=== PATIENT | male | born 1940 | race Caucasian/White ===

== ENCOUNTER 2017-10-23 11:08 | Inpatient (IN) | payer MEDICARE ==
[2017-10-23 11:41] LABS: #Basophils 0.1 thou/uL (0.0-0.2); #Eosinphils 0.2 thou/uL (0.0-0.7); #Lymphocytes 2.7 thou/uL (1.20-3.40); #Monocytes 0.7 thou/uL (0.11-0.59); #Neutrophils 3.9 thou/uL (1.40-6.50); %Basophils 1.1 % (0.0-1.0); %Eosinophils 2.3 % (0.0-10.0); %Lymphocytes 35.6 % (21.0-51.0); %Monocytes 8.9 % (0.0-10.0); %Neutrophils 52.1 % (42.0-75.0); Hemoglobin 15.5 g/dL (14.0-18.0); Mean Corpuscular HGB CONC 33.5 g/dL (32.0-36.0); Mean Corpuscular Hemoglobin 31.7 pg (27.0-31.0); Mean Corpuscular Volume 94.4 fl (80.0-94.0); Mean Platelet Volume 8.1 fL (7.4-10.4); Platelet Count 216 thou/uL (130-400); RBC Distribution Width 12.6 % (11.5-14.5); Red Blood Cell (RBC) Count 4.89 mill/uL (4.70-6.10); White Blood Cell (WBC) Count 7.5 thou/uL (4.8-10.8)
[2017-10-23 12:07] LABS: ALT (SGPT) 13 U/L (8-55); AST (SGOT) 16 U/L (5-34); Albumin 4.3 g/dL (3.4-4.8); Alkaline Phosphatase 103 U/L (40-150); Anion Gap 13 mmol/L (10-20); BUN (Urea Nitrogen) 12 mg/dL (8.4-25.7); Bilirubin, Total 0.5 mg/dL (0.2-1.2); CK (CPK) 120 U/L (30-200); Calc. Creatinine Clearance 0 mL/min (70-130); Carbon Dioxide 26 mmol/L (23-31); Chloride 103 mmol/L (98-107); Estimated GFR-MDRD 82; Globulin 3.8 g/dL (2.4-3.5); Glucose 102 mg/dL (83-110); Protein, Total 8.1 g/dL (5.8-8.1); Sodium 138 mmol/L (136-145)
[2017-10-23 12:11] LABS: CKMB 2.2 ng/mL (0-6.6); Troponin I Less than 0.010 ng/mL (< 0.028)
[2017-10-23] MEDS ORDERED: hydrALAZINE 20 MG/ML VIAL ONE (12:24)
--- NOTE | 2017-10-23 12:25 | CT ---
CT HEAD NONCONTRAST: HISTORY: Altered mental status. Facial numbness. FINDINGS: No comparison. There is no evidence of acute intracranial hemorrhage or infarct. The ventricles bessy ear normal in size, shape, and position. There is no mass effect or shift of midline structures. Vi sualized paranasal sinuses remain well aerated. IMPRESSION: No acute intracranial abnormalities are demonstrated on noncontrast CT head. POS: [facility]
--- NOTE | 2017-10-23 12:33 | RAD ---
SINGLE VIEW OF THE CHEST: COMPARISON: None. HISTORY: Altered mental status with mini stroke. Numbness in the face. FINDINGS: Single view of the chest shows a normal sized cardiomediastinal silhouette. There is no evidence of c onsolidation, mass, or pleural effusion. The bones are unremarkable. IMPRESSION: No evidence of acute cardiopulmonary disease. POS: [facility]
[2017-10-23] MEDS ORDERED: Mag-Al 1200 mg/1200 mg/30 ML UDCUP ONE (13:39)
[2017-10-23] MEDS ORDERED: Lidocaine Viscous Sol 2% 15 ml UD Cup ONE (13:39)
[2017-10-23] MEDS ORDERED: Acetaminophen 325 MG TAB PO PRN (14:47)
[2017-10-23] MEDS ORDERED: Ondansetron ODT 4 MG TAB SL PRN (14:47)
[2017-10-23] MEDS ORDERED: Ondansetron HCl/PF 4 MG/2 ML Vial IVP PRN (14:47)
[2017-10-23] MEDS ORDERED: Lorazepam 1 MG TAB PO PRN (16:29)
[2017-10-23] MEDS ORDERED: Lorazepam 2 MG/ML VIAL SLOW IVP PRN (16:30)
[2017-10-23 16:40] VITALS: BMI 31.5
--- NOTE | 2017-10-23 17:29 | HP ---
PRIMARY CARE PHYSICIAN: None. CHIEF COMPLAINT: Possible transient ischemic attack. HISTORY OF PRESENT ILLNESS: The patient is a very pleasant 77-year-old male with past medical histor y of colon cancer, status post resection and chemotherapy about 10 years ago who presented to the ER with complaints of right-sided facial tingling and right upper and lower extremity tingling and numbn ess. The patient stated that this happened to him yesterday evening and started having right facial numbness and tingling, also right upper and lower extremity numbness and tingling, which was pretty i ntense. However, the patient did not do anything about it and just his symptoms resided. However, uriel yates woke up this morning and started having the similar symptoms, which made him come into the ER. The patient states that he has never had this happen to him in the past. The patient states he is prett y healthy and does not follow up with a lot of doctors. The patient denies any nausea, vomiting, alexx st discomfort, headaches, fevers or chills. The patient currently is asymptomatic. The patient did say that he did take aspirin this morning; however, normally he does not take aspirin. PAST MEDICAL HISTORY: 1. Colon cancer, status post resection about 10 years ago with chemotherapy. 2. Questionable hypertension; however, the patient stated that he lost weight and he was taken off o f the blood pressure medication. PAST SURGICAL HISTORY: Colon resection. ALLERGIES: The patient has no known drug allergies. MEDICATIONS: The patient does not take any medications at home. SOCIAL HISTORY: The patient was a very heavy smoker, 2-3 packs a day for about 20 years, quit a long time ago. Also, he is a very heavy drinker, 6-13 beers a day. Denies any withdrawal symptoms. FAMILY HISTORY: The patient denies any significant family history of heart disease. REVIEW OF SYSTEMS: A 10-point review of systems was negative except for the ones mentioned in the HP I. PHYSICAL EXAMINATION. VITAL SIGNS: Blood pressure 178/76, pulse 86, respirations 20 and temperature is 98.5. GENERAL: The patient is awake, alert and oriented x3, does not appear in any distress. HEENT: Normocephalic and atraumatic. NECK: No lymphadenopathy noted. CARDIOVASCULAR: S1 and S2 present. No murmurs, rubs or gallops. LUNGS: Clear to auscultation. No rhonchi or wheezes noted. ABDOMEN: Soft and nontender. Bowel sounds are present x2. NEUROLOGIC: Cranial nerves II-XI are intact. The patient has 5/5 upper extremity and lower extremit y strength. No weakness noted. Sensation intact in the bilateral upper and lower extremities. Cere bellum; [id number]-to-nzzy and [id number]-td-[id number] intact. LABORATORY DATA: WBCs of 7.5, hemoglobin of 15.5 and hematocrit of 46.1. Sodium of 138, potassium o f 4.0, chloride of 103 and creatinine of 0.9. LFTs were normal. Troponin was negative. Chest x-ray did not show any acute process. CT of the brain was negative for acute bleed. ASSESSMENT AND PLAN: The patient is a very pleasant 77-year-old male who initially presented to the hospital with right-sided weakness. 1. Right-sided weakness, most likely a transient ischemic attack; however, now has resolved. We mahsa l start patient on 325 mg of aspirin. We will start patient on a statin. We will check a hemoglobin A1c and lipid panel, MRI of the brain, carotid Dopplers and echocardiogram. We will continue to mon itor the patient on telemetry. Neurology consulted. 2. Hypertension. We will start the patient on high blood pressure medication. We will put patient on a low salt diet. 3. Deep venous thrombosis prophylaxis. We will put patient on Lovenox.
[2017-10-23] MEDS ORDERED: Lisinopril 20 MG TAB PO SCH (17:30)
--- NOTE | 2017-10-23 20:54 | CON ---
DATE OF CONSULTATION: 10/23/2017 CHIEF COMPLAINT: Numbness in the right side of the face. HISTORY OF PRESENT ILLNESS: Patient is a 77-year-old man, who reports he has been in his usual state of health. He is pretty active. He has not been to the doctors in while and he was told if he redu susi his body weight, the doctor might consider stopping his blood pressure medications, but he has st opped his blood pressure medication recently by himself and he also had loose tooth yesterday, which he pulled out by himself and reports there was a little bit of an abscess there and a swelling. He i s not sure what caused it, but he developed numbness of the right side of the face along with right u pper and arm tingling and numbness, which lasted about 8-10 minutes, top 15 minutes yesterday, but to day he reports he has had recurrence of the same symptoms and woke up with it and he decided somethin g is wrong and came to the ER. No history of any weakness was reported. He does not have any swallo wing problems, speech problems, or double vision. 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 PREVIOUS MEDICAL HISTORY: 1. Colon cancer and status post resection 10 years ago with chemotherapy. 2. Hypertension and he recently stopped his own medications. PAST SURGICAL HISTORY: Colon resection. ALLERGIES: No drug allergies. MEDICATIONS: None at home. FAMILY HISTORY: Positive for stroke in his mother and is also history of heart attack in his sibling s, one brother at 46 years of age from heart disease. SOCIAL HISTORY: Patient used to smoke heavily until about age 41, and then he stopped and he drinks daily and drinks up to 12-13 beers a day, starts in the evening at 5:00 p.m. and ends at 9:00 p.m. H e does not eat much in the evenings. He does not have any drug use. 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 REVIEW OF SYSTEMS: Pulmonary: Normal. Cardiac: Normal. Negative for any chest pain. Dermatologi c: Normal. General: Positive for hypertension. Neurologic: Positive for numbness and tingling in the right face, arm, and leg distribution. Endocrine: Normal. LABORATORY RESULTS: White count 7.5, hemoglobin 15.5, hematocrit 46.1, platelets 216. Chemistry: S odium 138, potassium 4.0, chloride 103, carbon dioxide 26, BUN 12, creatinine 0.9, and blood glucose 102, globulin 3.8, albumin 4.3, and liver functions within normal limits with normal alkaline phospha tase levels at 103. His CT scan of the head did not show any acute intracranial abnormalities. PHYSICAL EXAMINATION: VITAL SIGNS: Blood pressure 178/76, temperature 98.5, pulse 86, respiratory rate 20, O2 sats 96. GENERAL APPEARANCE: Well-built, well-nourished gentleman, who is comfortably lying in bed. CARDIOVASCULAR: S1, S2 heard. No murmurs. Carotids are clear. ABDOMEN: Soft, nontender, no organomegaly found. CHEST: Clear vesicular breathing. NEUROLOGICAL: High intellectual functions are normal with normal orientation to time, place, and per son appropriate conversation. Cranial nerves II through XII. Normal pupillary size 2 mm bilaterally and reactive to light. Normal extraocular movements. Normal sensation of face bilaterally. No fac ial asymmetry noted. Hearing normal bilaterally. Normal elevation of palate. Tongue midline, no at rophy noted. Motor exam: Bulk normal, tone normal, strength 5/5 throughout in upper and lower extre mities in iliopsoas, hamstrings, quadriceps, ankle dorsiflexion, plantar flexion, deltoid, biceps, tr iceps, wrist extension/flexion, finger extension and flexion bilaterally. Deep tendon reflexes 2+ bi laterally with brachioradialis and triceps, and knee jerks and ankle jerks bilaterally. Sensory exam ination: Normal to touch, pinprick, proprioception, vibration, and temperature bilaterally. Cerebel lar: Normal [id number]-ut-frfg and wxzd-oy-[id number]. IMPRESSION: Patient is a 77-year-old man with history of colon cancer about 10 years ago and at this time, and he has not been under regular medical care over the past few years by choice. He reports he has been having problems with numbness of the face, arm, and leg and on the right side, which last ed about 8-15 minutes yesterday and he woke up again with numbness in the right side this morning, wh ich alerted him and he came to the ER and he had recurrence of the same symptoms on and off through t he day-to-day. No weakness was described. No visual symptoms. There is a positive family history o f stroke in his mother, coronary artery disease with an SC in his brother, who at age 46. Patient himself has been given antihypertensives and because his doctor told him he would take him off of it if he lost weight. Patient worked and lost 40 pounds and decided to take himself off of hi s antihypertensives. Yesterday, the only other incident is that he had a loose tooth and he pulled it out himself and he felt there was some swelling in the gum area. His clinical examination current ly is normal. Clinical history and diagnosis is most consistent with transient ischemic attack, like ly cause his hypertension. RECOMMENDATIONS: 1. Please start patient on aspirin 81 mg once daily. 2. Monitor for any significant changes in his neurological status. 3. Please include TSH, B12, folate, echocardiogram and lipid profile in his stroke workup. 4. Please obtain MRI of the brain. 5. I will ask one of my Neurology colleagues to follow this patient tomorrow after the MRI has been completed.
[2017-10-23] MEDS: Atorvastatin Calcium 10 MG TAB PO SCH (22:18)
--- NOTE | 2017-10-23 23:10 | ULT ---
CAROTID ULTRASOUND WITH DREW SCALE AND DOPPLER DUPLEX COLOR FLOW IMAGING SPECTRAL ANALYSIS PERFORMED: CLINICAL INDICATION: Stroke. FINDINGS: There is moderate scattered atherosclerotic calcification of the carotid arteries. PEAK SYSTOLIC VELOCITY (CM/S): Right CCA 73 Left CCA 108 Right ICA 90 Left ICA 183 There is antegrade flow within the visualized bilateral vertebral arteries. IMPRESSION: 1. No hemodynamically significant stenosis of the right internal carotid artery. 2. Moderate (50-69%) stenosis of the left internal carotid artery. POS: [facility]
[2017-10-24 05:18] LABS: Hemoglobin A1c 4.8 % (4.0-6.0)
[2017-10-24 05:36] LABS: Cardiac Risk 3.8 (Less than 4.5)
[2017-10-24] MEDS ORDERED: Aspirin 81 mg Enteric Coated Tablet PO SCH (09:00)
[2017-10-24] MEDS: Enoxaparin Sodium 30 MG/0.3 ML SYRINGE SC SCH (09:09)
[2017-10-24] MEDS: Lisinopril 20 MG TAB PO SCH (09:10)
--- NOTE | 2017-10-24 10:29 | MRI ---
MRI BRAIN NONCONTRAST: DATE: 10/24/17. HISTORY: A 77-year-old male with acute stroke. Altered mental status and facial numbness (hypesthesia). COMPARISON: No prior brain MRIs. FINDINGS: There are 2 tiny foci of restricted diffusion, associated with minimally increased T2 signal intensit y, in the left thalamus, each measuring approximately 0.4 x 0.2 cm, consistent with acute or subacute tiny lacunar infarctions. There are mild to moderate chronic ischemic white matter changes in the navas radiata and centrum se miovale. Ventricles are normal in size and configuration. No recent or remote intraaxial hemorrhage , mass effect, midline shift, or extraaxial fluid collection. IMPRESSION: Two tiny acute or subacute lacunar infarctions in the left thalamus (thalamoperforator branch territo ry of left posterior cerebral artery). JN R POS: OFF
[2017-10-24] MEDS ORDERED: Acetaminophen 325 MG TAB PO PRN (17:44)
--- NOTE | 2017-10-24 18:10 | PDOC.PN ---
- Subjective Encounter Start Date: 10/24/17 Encounter Start Time: 13:00 Subjective: pt up in bed keeps having tingling to his right side of the face x2 - Objective Vital Signs & Weight: Vital Signs (12 hours) Temp Pulse Resp BP Pulse Ox 10/24/17 16:00 98.3 F 70 16 147/66 H 95 Result Diagrams: 10/23/17 11:35 10/23/17 11:35 Phys Exam - Physical Examination HEENT: PERRLA Neck: no nodes, no JVD Respiratory: no wheezing, no rales Cardiovascular: RRR, no significant murmur Gastrointestinal: soft, non-tender Musculoskeletal: no edema, pulses present Neurological: non-focal, normal sensation Lymphatic: no nodes Psychiatric: normal affect Dx/Plan (1) Lacunar infarct, acute Code(s): I63.9 - CEREBRAL INFARCTION, UNSPECIFIED Status: Acute Plan: pt is on statin and asa (2) Hypertension Code(s): I10 - ESSENTIAL (PRIMARY) HYPERTENSION Status: Acute Plan: stable will continue bp meds for now - Plan * .
[2017-10-24] MEDS: Atorvastatin Calcium 10 MG TAB PO SCH (21:30)
[2017-10-25] MEDS: Lisinopril 20 MG TAB PO SCH (08:48)
[2017-10-25] MEDS: Enoxaparin Sodium 30 MG/0.3 ML SYRINGE SC SCH (08:48)
[2017-10-25] MEDS ORDERED: Aspirin 325 mg Enteric Coated Tablet PO SCH (09:00)
--- NOTE | 2017-10-25 09:49 | CT ---
CT ANGIOGRAM OF THE NECK WITH CONTRAST: Date: 10-25-17 History: 77-year-old male with left internal carotid artery stenosis and stroke. Technique: IV injection of Isovue. Arterial bolus chasing technique scan performed from aortopulmonic window to skull base. Coronal and sagittal 3D MIP reconstructions. FINDINGS: Brachiocephalic: Calcified plaque at its origin from aortic arch. No high grade stenosis. Right subclavian: Calcified plaque at its origin from the brachiocephalic, but no high grade stenosis . Left subclavian: Calcified plaque at its origin from the aortic arch. No high grade stenosis. Right common carotid artery: No high grade stenosis. Left common carotid: Calcified plaque at its origin causing moderate stenosis. No high grade stenosis in the rest of the left common carotid. Right internal carotid: Heavily calcified plaque at the carotid bulb makes it difficult to evaluate t he degree of stenosis. Estimated maximum degree of stenosis is approximately 30% in the proximal SAM . No stenosis in the rest of the vessel. Left internal carotid: Heavily calcified plaque at the bulb and extending approximately 2 cm distally from the bulb, makes it difficult to estimate the degree of stenosis. Estimated 50% stenosis at orig in of LICA. No high grade stenosis in the rest of the left internal carotid. Right vertebral: Bilateral vertebral arteries are codominant. Heavily calcified plaque at origin of r ight vertebral makes it difficult to evaluate the degree of stenosis there. It appears to be severely stenotic. No high grade stenosis in the rest of the right vertebral, including intracranial portion. Left vertebral: Calcified plaque at origin makes it difficult to evaluate the degree of stenosis, pos sibly severe. No high grade stenosis in the rest of the left vertebral identified. Mild and moderate degenerative disc changes at several levels. Severe left sided degenerative facet d isease at C2-3, C3-4, and C4-5. Moderate such degenerative facet changes on the right at the same lev els. There are multiple scattered mildly enlarged cervical lymph nodes, nonspecific. For example, a left l evel 2-3 lymph node is approximately 1 x 7 cm. IMPRESSION: 1. Heavily calcified plaque in multiple artery origins makes it difficult to evaluate the degree of s tenoses. 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 2. Estimated 50% stenosis at origin of left internal carotid. 3. Estimated 30% stenosis at proximal right internal carotid. 4. Estimated severe stenoses at the origins of bilateral vertebral arteries. 5. Nonspecific mild cervical lymphadenopathy. 6. Cervical spondylosis. POS: [facility]
--- NOTE | 2017-10-25 14:08 | PDOC.PN ---
- Subjective Encounter Start Date: 10/25/17 Encounter Start Time: 09:45 Subjective: pt up in bed still has tinglingsensation to the right side of his face. - Objective Vital Signs & Weight: Vital Signs (12 hours) Temp Pulse Pulse Pulse Resp BP BP 10/25/17 13:15 140/64 10/25/17 11:53 98.2 F 71 20 10/25/17 09:40 74 83 139/70 10/25/17 09:17 131/73 10/25/17 08:48 131/73 10/25/17 07:50 97.5 F L 69 18 10/25/17 07:40 97.5 F L 69 18 10/25/17 07:14 74 83 142/77 H 10/25/17 04:00 97.6 F 72 16 BP BP Pulse Ox 10/25/17 13:15 10/25/17 11:53 140/64 97 10/25/17 09:40 158/71 H 10/25/17 09:17 10/25/17 08:48 10/25/17 07:50 94 L 10/25/17 07:40 131/73 94 L 10/25/17 07:14 138/80 10/25/17 04:00 134/67 96 Result Diagrams: 10/23/17 11:35 10/23/17 11:35 Phys Exam - Physical Examination HEENT: PERRLA, moist MMs Neck: no nodes Respiratory: no wheezing, no rales Cardiovascular: RRR, no significant murmur Gastrointestinal: soft, non-tender Musculoskeletal: no edema, pulses present Neurological: non-focal Lymphatic: no nodes Psychiatric: normal affect Dx/Plan (1) Lacunar infarct, acute Code(s): I63.9 - CEREBRAL INFARCTION, UNSPECIFIED Status: Acute Plan: on asa/statin, cta done which indicated heavy calcification around his carotids. spoke with neuro will consult cardiovascular surgery. (2) Hypertension Code(s): I10 - ESSENTIAL (PRIMARY) HYPERTENSION Status: Acute Plan: stable continue to monitor - Plan * .
[2017-10-25 16:24] VITALS: BP 121/71; TEMP 97.7
[2017-10-25] MEDS ORDERED: Atorvastatin Calcium 40 MG TAB PO SCH (21:00)
--- NOTE | 2017-10-25 21:25 | CON ---
DATE OF CONSULTATION: 10/25/2017 HISTORY OF PRESENT ILLNESS: This is a 77-year-old gentleman admitted with tingling and numbness on t he right side of his face, right arm, and leg, recurrent episodes over the preceding 2 to 3 days. Th ey were not associated with any motor function issues. Workup included carotid ultrasonography demon clementeting a peak left internal carotid velocity of 183 cm per second. A brain MRI showing two small l eft thalamic lacunar infarcts. Cardiac echo showing normal ejection fraction with some evidence of d iastolic dysfunction. CT angiogram which I reviewed, demonstrating heavily calcified bilateral carot id bulbs with a probable 70% stenosis of the left internal carotid artery, although the interpretatio n was 50%. The patient had calcification at the origin of the right vertebral artery less so the lef t vertebral artery. PAST MEDICAL HISTORY: Includes hypertension. He states he lost about 40 pounds in weight, stopped t aking his blood pressure medicines and has not really followed up with a physician. He had a colon c ancer resection by Dr. Hernandez about 10 years ago with some postoperative chemotherapy. PAST SURGICAL HISTORY: Otherwise, his past surgical history includes an appendectomy as a youngster. MEDICATIONS: He was on no medications and no allergies. CURRENT MEDICATIONS: Include aspirin one a day, lisinopril 20 a day, atorvastatin 80 a day. SOCIAL HISTORY: The patient was a heavy smoker, but quit smoking at age 42. He continues to drink a bout 10 to 12 beers every evening. He lives alone. PHYSICAL EXAMINATION: GENERAL: He is an alert, cooperative gentleman with multiple missing teeth. NECK: No carotid bruits. CARDIAC: Regular rate and rhythm. No gallops or murmurs. LUNGS: Clear to auscultation. ABDOMEN: Obese, nontender with an incarcerated ventral hernia just to the right of the umbilicus. EXTREMITIES: He has palpable femoral and popliteal pulses as well as a left dorsalis pedis pulse. H e has no peripheral edema. NEUROLOGIC: Normal at this time. PLAN: I discussed the case with Dr. Peña at this time, would like to add Plavix to his regimen. I b elieve he is having posterior circulation symptoms. At some point his left carotid could undergo end arterectomy, we would not recommend doing this in the face of current posterior circulation symptoms. Hopefully, blood pressure control and anticoagulation will improve his symptoms. I do not think th ere is any role for stenting of his vertebral arteries at this time.
--- NOTE | 2017-10-26 03:01 | PRG ---
DATE OF SERVICE: 10/24/2017 SUBJECTIVE: Mr. Avila is a pleasant 77-year-old male who presented with the episode of right facial and arm numbness. He reports that his strength in the right upper extremity is back to normal. He continues to have intermittent episodes of right facial and right arm numbness. He denie s any headache, chest pain, palpitations, dizziness, or lightheadedness. He denies any weakness asso ciated with these symptoms. PHYSICAL EXAMINATION: VITAL SIGNS: Blood pressure of 147/66, pulse of 70, temperature of 98.3, respiratory rate of . GENERAL: Well-developed, well-nourished male, in no apparent distress. RESPIRATORY: Clear to auscultation bilaterally. CARDIOVASCULAR: Regular rate and rhythm. NEUROLOGICAL EXAM: Mental status: Patient is awake, alert, oriented x3. Speech and language: Flue nt speech. Cranial nerves: Pupils are 3 mm and reactive. Visual benz are intact. Extraocular mu scles are intact. No nystagmus is noted. Face is symmetric. Tongue and uvula midline. Motor exam showed normal tone and bulk with 5/5 strength in both upper and lower extremities. Sensory: Sensati on is intact and symmetric. Deep tendon reflexes are 2+ reflexes in both upper and lower extremities . Babinski: Plantar responses flexion bilaterally. Coordination: Intact to [id number] tap ping bilaterally. IMAGING STUDIES: MRI brain without contrast was reviewed, which showed small lacunar infarct involvi ng the left thalamus. Echocardiogram results were reviewed, which showed EF of 50% to 55% without an y wall motion abnormality or intracardiac mass or thrombus. Carotid Doppler results were reviewed, w hich showed moderate stenosis of the left internal carotid artery. IMPRESSION: 1. Left thalamic infarct. 2. Left internal carotid artery stenosis. 3. Right facial and arm numbness, likely due to #1. PLAN: Mr. Avila is a pleasant 77-year-old male who presented with acute onset of right facial and arm numbness, who was found to have small lacunar infarct involving the left thalamic andreina ry. His carotid Doppler also shows left ICA stenosis. At this time, I will starting on aspiri n 325 mg daily for secondary stroke prevention. CT angiogram shows more than 30% stenosis mainly ___ __ Cardiovascular Surgery. Thank you for your consultation
[2017-10-26] MEDS ORDERED: Clopidogrel Bisulfate 75 MG TAB PO SCH (09:00)
[2017-10-26] MEDS ORDERED: Aspirin 81 mg Enteric Coated Tablet PO SCH (09:00)
--- NOTE | 2017-10-26 21:53 | DIS ---
DATE OF ADMISSION: 10/24/2017 DATE OF DISCHARGE: 10/25/2017 DISCHARGE MEDICATIONS: The patient's medications are as the following: Lisinopril 20 mg daily, Plav ix 75 mg daily, atorvastatin 80 mg daily. DISCHARGE SUMMARY: The patient is a very pleasant 77-year-old male, who initially presented to the [facility] for possible stroke alert. Patient had a tingling sensation to the right side of his face an d right side of his body; however, the sensation improved. Patient's CAT scan did not indicate any a cute abnormalities. He did undergo a brain MRI, which indicated 2 tiny acute or subacute lacunar inf arct in the left thalamus, which was thalamoperforator branch territory of the left posterior cerebra l artery. Neurology was also consulted in this case. Patient did have initially carotid Dopplers, w hich indicated no hemodynamically significant stenosis of the right internal carotid artery and moder ate 50%-69% stenosis of the left internal carotid artery; however, patient continued to have symptoms of tingling on his right face and right side of his body, so he underwent a CT angiogram of the head and neck, which indicated significant heavily calcified plaque in multiple artery origins difficult to evaluate the degree of stenosis estimated 50% stenosis of the left internal carotid and estimate 3 0% stenosis of the proximal right internal carotid and also estimate 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 At this point, I did have a conversation with Neurology, who reid mmended given the patient's symptomatology to consult Cardiovascular for possible carotid endarterect elizabeth. The patient was seen by Cardiovascular Surgery and the option was up to medically manage the pa tient on Plavix for now and a statin; however, patient was notified that if his symptoms worsen that he would call the cardiothoracic surgeon and the patient would then undergo carotid surgery. I had a lso discussed the case with the cardiothoracic surgeon. Patient was then discharged home. He will f ollow up with PCP and Cardiology as outpatient. PROCEDURES: The patient had an echocardiogram which indicated an EF of 50%-55%, which no significant valvular abnormalities. 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
== END 2017-10-25 18:21 | disposition home or self-care (01) | DRG 65 ==
LOC: ERS 11:08 → 2SE 14:50 → OBSVTOIN 10-24 12:51
PROVIDERS: ADMIT Internal Medicine; ATTEND Internal Medicine
DX: I63.232 Cerebral infarction due to unspecified occlusion or stenosis of left carotid arteries (principal); G81.91 Hemiplegia, unspecified affecting right dominant side; I10 Essential (primary) hypertension; Z85.038 Personal history of other malignant neoplasm of large intestine; R20.2 Paresthesia of skin; Z87.891 Personal history of nicotine dependence; Z90.49 Acquired absence of other specified parts of digestive tract
CPT/HCPCS: 36415; 70450; 70498; 70551; 71045; 80053; 80061; 82553; 83036; 84484; 85025; 93005; 93306; 93880; 94760; 96374; G8978-GP-CI; G8979-GP-CI; G8980-GP-CI; G8987-GO-CI; G8988-GO-CI; G8989-GO-CI; G8996-GN-CH; G8997-GN-CH; J0360; J1650; Q0162

== ENCOUNTER 2021-03-12 09:50 | Outpatient (CLI) | payer MEDICARE ==
[~2021-03-12 09:50] MED LIST: Magnevist 469MG/ML 20 ML VIAL ONE
[2021-03-12 10:32] LABS: Estimated GFR-MDRD - POC Greater than 90
== END 2021-03-12 09:51 | disposition home or self-care (01) ==
LOC: BICMRI 09:50
PROVIDERS: ATTEND Neurological Surgery
DX: G54.0 Brachial plexus disorders (principal)
CPT/HCPCS: 71552; 82565

== ENCOUNTER 2023-03-16 14:22 | Outpatient (CLI) | payer MEDICARE ==
[2023-03-16 16:44] LABS: ALT (SGPT) 16 U/L (8-55); AST (SGOT) 20 U/L (5-34); Albumin 3.6 g/dL (3.4-4.8); Alkaline Phosphatase 87 U/L (40-110); Anion Gap 15 mmol/L (10-20); BUN (Urea Nitrogen) 14 mg/dL (8.4-25.7); Bilirubin, Total 0.3 mg/dL (0.2-1.2); Calc. Creatinine Clearance 0 mL/min (70-130); Calcium 9.3 mg/dL (7.8-10.44); Carbon Dioxide 26 mmol/L (23-31); Chloride 105 mmol/L (98-107); Estimated GFR 91; Globulin 2.8 g/dL (2.4-3.5); Glucose 100 mg/dL (83-110); Potassium 4.5 mmol/L (3.5-5.1); Protein, Total 6.4 g/dL (5.8-8.1); Sodium 141 mmol/L (136-145)
== END 2023-03-16 14:23 | disposition home or self-care (01) ==
LOC: LABBT 14:22
PROVIDERS: ATTEND Surgery
DX: Z01.818 Encounter for other preprocedural examination (principal); C18.9 Malignant neoplasm of colon, unspecified
CPT/HCPCS: 80053; 93005; 93010

== ENCOUNTER 2023-03-21 06:37 | Day surgery (SDC) | payer MEDICARE ==
[2023-03-16 16:06] VITALS: BMI 27.8
[2023-03-21] MEDS ORDERED: PROPOFOL 40 ML ONE (07:12)
[2023-03-21] MEDS ORDERED: fentaNYL 50 mcg/mL 1 mL Vial ONE (07:12)
[2023-03-21] MEDS ORDERED: Famotidine/PF 20 mg/2ml Vial ONE (07:12)
[2023-03-21] MEDS ORDERED: EPINEPHrine 1 MG/ML AMP ONE (07:32)
[2023-03-21] MEDS ORDERED: Bupivacaine 0.25% HCL 30 ML VIAL ONE (07:32)
[2023-03-21 07:33] LABS: #Basophils 0.1 thou/uL (0.0-0.2); #Eosinphils 0.2 thou/uL (0.0-0.7); #Monocytes 0.9 thou/uL (0.11-0.59); #Neutrophils 5.8 thou/uL (1.40-6.50); %Basophils 0.5 % (0.0-1.0); %Lymphocytes 26.6 % (21.0-51.0); %Monocytes 9.3 % (0.0-10.0); %Neutrophils 61.3 % (42.0-75.0); Hemoglobin 11.7 g/dL (14.0-18.0); Mean Corpuscular HGB CONC 30.5 g/dL (32.0-36.0); Mean Corpuscular Hemoglobin 27.3 pg (27.0-31.0); Mean Corpuscular Volume 89.3 fl (78.0-98.0); Mean Platelet Volume 10.2 fL (7.4-10.4); Platelet Count 379 10x3/uL (130-400); RBC Distribution Width 17.2 % (11.5-14.5); Red Blood Cell (RBC) Count 4.29 mill/uL (4.70-6.10); White Blood Cell (WBC) Count 9.5 10x3/uL (4.8-10.8)
[2023-03-21] MEDS ORDERED: Lidocaine 2% PF 5 ML VIAL ONE (07:33)
[2023-03-21] MEDS ORDERED: Sodium Chloride 0.9% 100 ML ONE (07:41)
[2023-03-21] MEDS ORDERED: CEFAZOLIN 2 GM VIAL ONE (07:41)
[2023-03-21] MEDS ORDERED: Lidocaine 1% PF 5 ML VIAL ONE (07:51)
[2023-03-21] MEDS ORDERED: PROPOFOL 200 MG/20 ML VIAL ONE (07:51)
[2023-03-21] MEDS ORDERED: Ondansetron PF 4 MG/2 ML Vial ONE (07:51)
== END 2023-03-21 09:40 | disposition home or self-care (01) ==
LOC: SDC 06:37
PROVIDERS: ATTEND Surgery
PROC: 05HM33Z Insertion of Infusion Device into Right Internal Jugular Vein, Percutaneous Approach (ICD-10-PCS; principal; 2023-03-21)
DX: C20 Malignant neoplasm of rectum (principal); C18.9 Malignant neoplasm of colon, unspecified; I10 Essential (primary) hypertension; E78.00 Pure hypercholesterolemia, unspecified; Z86.73 Personal history of transient ischemic attack (TIA), and cerebral infarction without residual deficits; Z79.02 Long term (current) use of antithrombotics/antiplatelets; Z79.899 Other long term (current) drug therapy; Z87.891 Personal history of nicotine dependence
CPT/HCPCS: 36561; 71045; 85025; J3010; C1788; J0171; J1642; J2001; J2405; J2704; J3490; S0020; S0028

== ENCOUNTER 2023-10-26 13:41 | Inpatient (IN) | payer MEDICARE ==
[2023-10-26] MEDS ORDERED: Cefepime 2 GM VIAL ONE (14:37)
[2023-10-26] MEDS ORDERED: Sodium Chloride 0.9% 100 ML ONE (14:37)
[2023-10-26 14:56] LABS: #Eosinphils 0.3 thou/uL (0.0-0.7); #Monocytes 0.6 thou/uL (0.11-0.59); #Neutrophils 5.8 thou/uL (1.40-6.50); %Basophils 0.3 % (0.0-1.0); %Eosinophils 3.1 % (0.0-10.0); %Monocytes 7.1 % (0.0-10.0); %Neutrophils 65.9 % (42.0-75.0); Hematocrit 26.6 % (42.0-52.0); Hemoglobin 8.2 g/dL (14.0-18.0); Mean Corpuscular HGB CONC 30.8 g/dL (32.0-36.0); Mean Corpuscular Hemoglobin 28.9 pg (27.0-31.0); Mean Corpuscular Volume 93.7 fl (78.0-98.0); Mean Platelet Volume 9.2 fL (7.4-10.4); Platelet Count 470 10x3/uL (130-400); Red Blood Cell (RBC) Count 2.84 mill/uL (4.70-6.10); White Blood Cell (WBC) Count 8.7 10x3/uL (4.8-10.8)
[2023-10-26 16:22] LABS: ALT (SGPT) 19 U/L (8-55); AST (SGOT) 32 U/L (5-34); Alkaline Phosphatase 223 U/L (40-110); Anion Gap 13 mmol/L (10-20); BUN (Urea Nitrogen) 10 mg/dL (8.4-25.7); Bilirubin, Total 0.4 mg/dL (0.2-1.2); Calc. Creatinine Clearance 0 mL/min (70-130); Calcium 9.7 mg/dL (7.8-10.44); Carbon Dioxide 23 mmol/L (23-31); Chloride 103 mmol/L (98-107); Estimated GFR 95; Glucose 86 mg/dL (83-110); Potassium 3.9 mmol/L (3.5-5.1); Sodium 135 mmol/L (136-145)
[2023-10-26] MEDS ORDERED: Ondansetron PF 4 MG/2 ML Vial IVP PRN (18:08)
[2023-10-27] MEDS: Atorvastatin Calcium 40 MG TAB PO SCH (00:13)
[2023-10-27] MEDS: Metoprolol Tartrate 25 MG TAB PO SCH (00:14)
[2023-10-27] MEDS: Famotidine/PF 20 mg/2ml Vial SLOW IVP SCH (00:14)
[2023-10-27] MEDS ORDERED: Cefepime 2 GM VIAL ONE (03:10)
[2023-10-27] MEDS ORDERED: Sodium Chloride 0.9% 100 ML ONE (03:18)
[2023-10-27] MEDS: Cefepime 2 GM in Sodium Chloride 0.9% 100 ML IVPB SCH (03:23)
[2023-10-27 04:22] VITALS: BMI 23.0
[2023-10-27 05:10] LABS: #Eosinphils 0.2 thou/uL (0.0-0.7); #Monocytes 0.9 thou/uL (0.11-0.59); #Neutrophils 6.9 thou/uL (1.40-6.50); %Basophils 0.3 % (0.0-1.0); %Eosinophils 1.5 % (0.0-10.0); %Lymphocytes 18.8 % (21.0-51.0); %Monocytes 8.7 % (0.0-10.0); Hematocrit 25.7 % (42.0-52.0); Hemoglobin 7.9 g/dL (14.0-18.0); Mean Corpuscular HGB CONC 30.7 g/dL (32.0-36.0); Mean Corpuscular Hemoglobin 28.7 pg (27.0-31.0); Mean Corpuscular Volume 93.5 fl (78.0-98.0); Platelet Count 431 10x3/uL (130-400); RBC Distribution Width 16.1 % (11.5-14.5); Red Blood Cell (RBC) Count 2.75 mill/uL (4.70-6.10); White Blood Cell (WBC) Count 9.8 10x3/uL (4.8-10.8)
[2023-10-27 05:35] LABS: Anion Gap 13 mmol/L (10-20); BUN (Urea Nitrogen) 9 mg/dL (8.4-25.7); Calc. Creatinine Clearance 99 mL/min (70-130); Calcium 9.6 mg/dL (7.8-10.44); Carbon Dioxide 22 mmol/L (23-31); Chloride 104 mmol/L (98-107); Estimated GFR 96; Glucose 98 mg/dL (83-110); Potassium 3.8 mmol/L (3.5-5.1); Sodium 135 mmol/L (136-145)
[2023-10-27] MEDS: Vancomycin (BATCH) 1.5 GM in Premix 1 BAG IVPB SCH (06:29)
[2023-10-27] MEDS: Vancomycin (BATCH) 1.25 GM in Premix 1 BAG IVPB SCH (06:30)
[2023-10-27] MEDS ORDERED: Magnevist 469MG/ML 20 ML VIAL ONE ×2 (11:08)
[2023-10-27] MEDS: Loperamide HCl 2 MG CAP PO SCH (20:25)
[2023-10-28] MEDS: HYDROcodone/Acetaminophen 10/325 mg Tablet PO PRN (00:29)
[2023-10-28 04:12] LABS: #Eosinphils 0.1 thou/uL (0.0-0.7); #Monocytes 0.8 thou/uL (0.11-0.59); #Neutrophils 4.7 thou/uL (1.40-6.50); %Basophils 0.5 % (0.0-1.0); %Eosinophils 1.5 % (0.0-10.0); %Lymphocytes 24.8 % (21.0-51.0); %Monocytes 10.8 % (0.0-10.0); %Neutrophils 61.9 % (42.0-75.0); Hematocrit 24.2 % (42.0-52.0); Hemoglobin 7.4 g/dL (14.0-18.0); Mean Corpuscular HGB CONC 30.6 g/dL (32.0-36.0); Mean Corpuscular Hemoglobin 28.2 pg (27.0-31.0); Mean Corpuscular Volume 92.4 fl (78.0-98.0); Mean Platelet Volume 9.4 fL (7.4-10.4); Platelet Count 429 10x3/uL (130-400); RBC Distribution Width 16.2 % (11.5-14.5); Red Blood Cell (RBC) Count 2.62 mill/uL (4.70-6.10); White Blood Cell (WBC) Count 7.6 10x3/uL (4.8-10.8)
[2023-10-28 04:40] LABS: Vancomycin, Trough 14.2 ug/mL
[2023-10-28 04:41] LABS: Anion Gap 11 mmol/L (10-20); BUN (Urea Nitrogen) 9 mg/dL (8.4-25.7); Calc. Creatinine Clearance 97 mL/min (70-130); Carbon Dioxide 23 mmol/L (23-31); Chloride 106 mmol/L (98-107); Estimated GFR 95; Glucose 99 mg/dL (83-110); Potassium 3.5 mmol/L (3.5-5.1); Sodium 136 mmol/L (136-145)
[2023-10-29 05:29] LABS: #Eosinphils 0.3 thou/uL (0.0-0.7); #Monocytes 0.9 thou/uL (0.11-0.59); #Neutrophils 5.2 thou/uL (1.40-6.50); %Basophils 0.4 % (0.0-1.0); %Eosinophils 3.2 % (0.0-10.0); %Lymphocytes 24.6 % (21.0-51.0); %Monocytes 10.5 % (0.0-10.0); %Neutrophils 60.7 % (42.0-75.0); Hematocrit 23.9 % (42.0-52.0); Hemoglobin 7.2 g/dL (14.0-18.0); Mean Corpuscular HGB CONC 30.1 g/dL (32.0-36.0); Mean Corpuscular Hemoglobin 27.6 pg (27.0-31.0); Mean Corpuscular Volume 91.6 fl (78.0-98.0); Mean Platelet Volume 9.5 fL (7.4-10.4); Platelet Count 399 10x3/uL (130-400); RBC Distribution Width 15.9 % (11.5-14.5); Red Blood Cell (RBC) Count 2.61 mill/uL (4.70-6.10); White Blood Cell (WBC) Count 8.5 10x3/uL (4.8-10.8)
[2023-10-29 06:01] LABS: Anion Gap 9 mmol/L (10-20); BUN (Urea Nitrogen) 9 mg/dL (8.4-25.7); Calc. Creatinine Clearance 100 mL/min (70-130); Calcium 9.2 mg/dL (7.8-10.44); Carbon Dioxide 23 mmol/L (23-31); Chloride 106 mmol/L (98-107); Estimated GFR 96; Glucose 87 mg/dL (83-110); Potassium 3.3 mmol/L (3.5-5.1); Sodium 135 mmol/L (136-145)
[2023-10-29] MEDS: cefTRIAXone\\ROCEPHIN 2 GM in Sodium Chloride 0.9% 100 ML IVPB SCH (10:16)
[2023-10-29] MEDS: Potassium Bicarbonate/Cit Ac 20 MEQ TAB PO SCH (10:17)
[2023-10-29] MEDS ORDERED: Polyethylene Glycol 3350 17 GM Packet PO PRN (10:54)
[2023-10-29] MEDS ORDERED: Vancomycin (BATCH) 1.25 GM in Premix 1 BAG IVPB SCH (14:45)
[2023-10-29] MEDS: metroNIDAZOLE 500 MG in Premix 1 BAG IVPB SCH (14:49)
[2023-10-29 17:38] LABS: Vancomycin, Trough 13.3 ug/mL
[2023-10-29] MEDS: Polyethylene Glycol 3350 17 GM Packet PO SCH (17:49)
[2023-10-29] MEDS: Vancomycin (BATCH) 1.5 GM in Premix 1 BAG IVPB SCH (19:13)
[2023-10-30 06:04] LABS: #Eosinphils 0.2 thou/uL (0.0-0.7); #Monocytes 0.7 thou/uL (0.11-0.59); #Neutrophils 5.2 thou/uL (1.40-6.50); %Basophils 0.5 % (0.0-1.0); %Eosinophils 2.3 % (0.0-10.0); %Lymphocytes 23.1 % (21.0-51.0); %Monocytes 9.1 % (0.0-10.0); %Neutrophils 64.6 % (42.0-75.0); Hematocrit 23.4 % (42.0-52.0); Hemoglobin 7.1 g/dL (14.0-18.0); Mean Corpuscular HGB CONC 30.3 g/dL (32.0-36.0); Mean Corpuscular Hemoglobin 27.6 pg (27.0-31.0); Mean Corpuscular Volume 91.1 fl (78.0-98.0); Mean Platelet Volume 9.4 fL (7.4-10.4); Platelet Count 374 10x3/uL (130-400); RBC Distribution Width 15.9 % (11.5-14.5); Red Blood Cell (RBC) Count 2.57 mill/uL (4.70-6.10); White Blood Cell (WBC) Count 8.1 10x3/uL (4.8-10.8)
[2023-10-30 06:42] LABS: Anion Gap 9 mmol/L (10-20); BUN (Urea Nitrogen) 7 mg/dL (8.4-25.7); Calc. Creatinine Clearance 114 mL/min (70-130); Carbon Dioxide 25 mmol/L (23-31); Chloride 104 mmol/L (98-107); Estimated GFR 100; Glucose 89 mg/dL (83-110); Potassium 3.4 mmol/L (3.5-5.1); Sodium 135 mmol/L (136-145)
[2023-10-30] MEDS: Potassium Chloride 20 MEQ TAB PO SCH (08:40)
[2023-10-31 06:00] LABS: #Eosinphils 0.2 thou/uL (0.0-0.7); #Monocytes 0.8 thou/uL (0.11-0.59); #Neutrophils 4.7 thou/uL (1.40-6.50); %Basophils 0.4 % (0.0-1.0); %Eosinophils 2.4 % (0.0-10.0); %Lymphocytes 26.6 % (21.0-51.0); %Monocytes 9.6 % (0.0-10.0); %Neutrophils 60.6 % (42.0-75.0); Hematocrit 24.2 % (42.0-52.0); Hemoglobin 7.3 g/dL (14.0-18.0); Mean Corpuscular HGB CONC 30.2 g/dL (32.0-36.0); Mean Corpuscular Hemoglobin 27.5 pg (27.0-31.0); Mean Corpuscular Volume 91.3 fl (78.0-98.0); Mean Platelet Volume 9.6 fL (7.4-10.4); Platelet Count 397 10x3/uL (130-400); Red Blood Cell (RBC) Count 2.65 mill/uL (4.70-6.10); White Blood Cell (WBC) Count 7.8 10x3/uL (4.8-10.8)
[2023-10-31 06:23] LABS: Anion Gap 14 mmol/L (10-20); BUN (Urea Nitrogen) 7 mg/dL (8.4-25.7); Calc. Creatinine Clearance 108 mL/min (70-130); Calcium 8.9 mg/dL (7.8-10.44); Carbon Dioxide 23 mmol/L (23-31); Chloride 105 mmol/L (98-107); Estimated GFR 98; Glucose 85 mg/dL (83-110); Potassium 3.7 mmol/L (3.5-5.1); Sodium 138 mmol/L (136-145)
[2023-10-31 06:33] LABS: Vancomycin, Trough 17.6 ug/mL
[2023-10-31] MEDS: Lidocaine 1% w/Epinephrine 1:100K 20 ML VIAL ONE (18:10)
[2023-11-01 04:21] LABS: #Eosinphils 0.2 thou/uL (0.0-0.7); #Monocytes 0.7 thou/uL (0.11-0.59); #Neutrophils 3.9 thou/uL (1.40-6.50); %Basophils 0.3 % (0.0-1.0); %Eosinophils 3.2 % (0.0-10.0); %Monocytes 9.8 % (0.0-10.0); %Neutrophils 55.3 % (42.0-75.0); Hematocrit 22.6 % (42.0-52.0); Hemoglobin 6.9 g/dL (14.0-18.0); Mean Corpuscular HGB CONC 30.5 g/dL (32.0-36.0); Mean Corpuscular Hemoglobin 28.2 pg (27.0-31.0); Mean Corpuscular Volume 92.2 fl (78.0-98.0); Mean Platelet Volume 9.4 fL (7.4-10.4); Platelet Count 384 10x3/uL (130-400); RBC Distribution Width 15.9 % (11.5-14.5); Red Blood Cell (RBC) Count 2.45 mill/uL (4.70-6.10); White Blood Cell (WBC) Count 7.1 10x3/uL (4.8-10.8)
[2023-11-01 05:12] LABS: Anion Gap 14 mmol/L (10-20); BUN (Urea Nitrogen) 9 mg/dL (8.4-25.7); Calc. Creatinine Clearance 116 mL/min (70-130); Calcium 8.8 mg/dL (7.8-10.44); Carbon Dioxide 23 mmol/L (23-31); Chloride 106 mmol/L (98-107); Estimated GFR 101; Glucose 79 mg/dL (83-110); Potassium 3.5 mmol/L (3.5-5.1); Sodium 139 mmol/L (136-145)
[2023-11-01] MEDS ORDERED: Lidocaine 1% PF 5 ML VIAL ONE (13:12)
[2023-11-01] MEDS ORDERED: Sodium Bicarbonate 2.5 MEQ/5 ML SDV ONE (13:12)
[2023-11-01] MEDS: CEFAZOLIN 2 GM in Sodium Chloride 0.9% 100 ML IVPB SCH (14:23)
[2023-11-02] MEDS: Acetaminophen 325 MG TAB PO PRN (06:17)
[2023-11-02 06:29] LABS: #Eosinphils 0.2 thou/uL (0.0-0.7); #Monocytes 0.6 thou/uL (0.11-0.59); #Neutrophils 5.2 thou/uL (1.40-6.50); %Basophils 0.5 % (0.0-1.0); %Eosinophils 2.1 % (0.0-10.0); %Monocytes 8.1 % (0.0-10.0); %Neutrophils 66.8 % (42.0-75.0); Hematocrit 28.3 % (42.0-52.0); Hemoglobin 8.8 g/dL (14.0-18.0); Mean Corpuscular HGB CONC 31.1 g/dL (32.0-36.0); Mean Corpuscular Hemoglobin 27.7 pg (27.0-31.0); Mean Platelet Volume 9.1 fL (7.4-10.4); Platelet Count 356 10x3/uL (130-400); RBC Distribution Width 16.3 % (11.5-14.5); Red Blood Cell (RBC) Count 3.18 mill/uL (4.70-6.10); White Blood Cell (WBC) Count 7.8 10x3/uL (4.8-10.8)
[2023-11-02 06:59] LABS: Anion Gap 10 mmol/L (10-20); BUN (Urea Nitrogen) 7 mg/dL (8.4-25.7); Calc. Creatinine Clearance 112 mL/min (70-130); Carbon Dioxide 23 mmol/L (23-31); Chloride 103 mmol/L (98-107); Estimated GFR 100; Glucose 81 mg/dL (83-110); Potassium 3.4 mmol/L (3.5-5.1); Sodium 133 mmol/L (136-145)
[2023-11-02] MEDS: Potassium Chloride 20 MEQ TAB PO SCH (08:19)
[2023-11-02 12:16] VITALS: BP 132/78; TEMP 98
== END 2023-11-02 16:42 | DRG 539 ==
LOC: ERS 13:41 → ERHOLD 17:29 → SURG B 10-27 03:58 → SURG A 10-27 21:35
PROVIDERS: ADMIT Internal Medicine; ATTEND Internal Medicine
PROC: 0JPT0WZ Removal of Totally Implantable Vascular Access Device from Trunk Subcutaneous Tissue and Fascia, Open Approach (ICD-10-PCS; principal; 2023-10-31)
PROC: 02HV33Z Insertion of Infusion Device into Superior Vena Cava, Percutaneous Approach (ICD-10-PCS; 2023-11-01)
PROC: B5181ZA Fluoroscopy of Superior Vena Cava using Low Osmolar Contrast, Guidance (ICD-10-PCS; 2023-11-01)
PROC: 3E04329 Introduction of Other Anti-infective into Central Vein, Percutaneous Approach (ICD-10-PCS; 2023-11-01)
PROC: B548ZZA Ultrasonography of Superior Vena Cava, Guidance (ICD-10-PCS; 2023-11-01)
PROC: 30233N1 Transfusion of Nonautologous Red Blood Cells into Peripheral Vein, Percutaneous Approach (ICD-10-PCS; 2023-11-01)
DX: M46.26 Osteomyelitis of vertebra, lumbar region (principal); G06.2 Extradural and subdural abscess, unspecified; G93.41 Metabolic encephalopathy; C18.9 Malignant neoplasm of colon, unspecified; M84.48XA Pathological fracture, other site, initial encounter for fracture; C20 Malignant neoplasm of rectum; E87.1 Hypo-osmolality and hyponatremia; M60.08 Infective myositis, other site; R78.81 Bacteremia; D84.821 Immunodeficiency due to drugs; M46.46 Discitis, unspecified, lumbar region; Z66 Do not resuscitate; I10 Essential (primary) hypertension; H54.7 Unspecified visual loss; D64.9 Anemia, unspecified; B96.1 Klebsiella pneumoniae [K. pneumoniae] as the cause of diseases classified elsewhere; M60.9 Myositis, unspecified; B96.20 Unspecified Escherichia coli [E. coli] as the cause of diseases classified elsewhere; B95.61 Methicillin susceptible Staphylococcus aureus infection as the cause of diseases classified elsewhere; L89.610 Pressure ulcer of right heel, unstageable; Z79.899 Other long term (current) drug therapy; Z98.49 Cataract extraction status, unspecified eye; Z90.49 Acquired absence of other specified parts of digestive tract; Z87.891 Personal history of nicotine dependence; Z82.49 Family history of ischemic heart disease and other diseases of the circulatory system
CPT/HCPCS: 36415; 36430; 36569; 71260; 72132; 72157; 72158; 72197; 74160; 80048; 80053; 80202; 83605; 85025; 86140; 86850; 86900; 86901; 87040; 87077; 87149; 87186; 93005; 96365; 96366; 96367; 97139; A9579; C1751; J0692; J0696; J3370; J3490; P9016; Q9967; S0028

== ENCOUNTER 2024-03-22 14:18 | Inpatient (IN) | payer MEDICARE ==
[2024-03-22 15:12] LABS: #Basophils Less than 0.03 10x3/uL (0.0-0.2); #Eosinphils Less than 0.03 10x3/uL (0.0-0.7); %Basophils 0.3 % (0.0-1.0); %Eosinophils 0.3 % (0.0-10.0); %Lymphocytes 12.6 % (21.0-51.0); %Monocytes 7.7 % (0.0-10.0); %Neutrophils 78.8 % (42.0-75.0); Hematocrit 22.4 % (42.0-52.0); Hemoglobin 6.4 g/dL (14.0-18.0); Mean Corpuscular HGB CONC 28.6 g/dL (32.0-36.0); Mean Corpuscular Volume 80.6 fL (78.0-98.0); Mean Platelet Volume 9.8 fL (7.4-10.4); Platelet Count 465 10x3/uL (130-400); RBC Distribution Width 17.8 % (11.5-14.5); Red Blood Cell (RBC) Count 2.78 mill/uL (4.70-6.10)
[2024-03-22 15:21] LABS: ALT (SGPT) 16 U/L (8-55); AST (SGOT) 18 U/L (5-34); Albumin 2.7 g/dL (3.4-4.8); Alkaline Phosphatase 169 U/L (40-110); Anion Gap 18 mmol/L (10-20); BUN (Urea Nitrogen) 17 mg/dL (8.4-25.7); Bilirubin, Total 0.3 mg/dL (0.2-1.2); Calc. Creatinine Clearance 0 mL/min (70-130); Calcium 8.8 mg/dL (7.8-10.44); Carbon Dioxide 16 mmol/L (23-31); Chloride 108 mmol/L (98-107); Estimated GFR 90; Glucose 128 mg/dL (83-110); INR-International Normal Ratio 1.2; PTT 27.2 sec (22.9-36.1); Potassium 3.8 mmol/L (3.5-5.1); Protein, Total 6.7 g/dL (5.8-8.1); Prothrombin Time 15.1 sec (12.0-14.7); Sodium 138 mmol/L (136-145)
[2024-03-22] MEDS ORDERED: Acetaminophen/Codeine 30-300mg Tablet PO PRN (16:42)
[2024-03-22 19:15] VITALS: BMI 24.5
[2024-03-22] MEDS: Gabapentin 300 MG CAP PO SCH (22:01)
[2024-03-22] MEDS: Cyanocobalamin (Vitamin B-12) 1,000 MCG TAB PO SCH (22:03)
[2024-03-22] MEDS: Folic Acid 1 MG TAB PO SCH (22:03)
[2024-03-22] MEDS: Famotidine 20 MG TAB PO SCH (22:03)
[2024-03-23] MEDS: Acetaminophen 325 MG TAB PO SCH (06:35)
[2024-03-23] MEDS ORDERED: Polyethylene Glycol 3350 17 GM Packet PO PRN ×2 (08:30→10:55)
[2024-03-23] MEDS: Atorvastatin Calcium 40 MG TAB PO SCH (08:46)
[2024-03-23] MEDS: Multivitamin W/ Minerals 1 TAB PO SCH (08:47)
[2024-03-23] MEDS: Aspirin 81 mg Enteric Coated Tablet PO SCH (08:47)
[2024-03-23] MEDS: Ferrous Sulfate 325 MG TAB PO SCH (08:47)
[2024-03-23] MEDS: Ascorbic Acid 500 mg Chewable Tablet PO SCH (08:47)
[2024-03-23 09:42] LABS: #Basophils Less than 0.03 10x3/uL (0.0-0.2); %Basophils 0.4 % (0.0-1.0); %Eosinophils 1.8 % (0.0-10.0); %Lymphocytes 24.5 % (21.0-51.0); %Monocytes 10.4 % (0.0-10.0); %Neutrophils 62.5 % (42.0-75.0); Hematocrit 22.3 % (42.0-52.0); Hemoglobin 6.4 g/dL (14.0-18.0); Mean Corpuscular HGB CONC 28.7 g/dL (32.0-36.0); Mean Corpuscular Hemoglobin 24.2 pg (27.0-31.0); Mean Corpuscular Volume 84.2 fL (78.0-98.0); Mean Platelet Volume 10.1 fL (7.4-10.4); Platelet Count 346 10x3/uL (130-400); RBC Distribution Width 17.7 % (11.5-14.5); Red Blood Cell (RBC) Count 2.65 mill/uL (4.70-6.10)
[2024-03-23 10:09] LABS: Anion Gap 8 mmol/L (10-20); BUN (Urea Nitrogen) 14 mg/dL (8.4-25.7); Calc. Creatinine Clearance 99 mL/min (70-130); Calcium 8.6 mg/dL (7.8-10.44); Carbon Dioxide 24 mmol/L (23-31); Chloride 109 mmol/L (98-107); Estimated GFR 95; Glucose 84 mg/dL (83-110); Potassium 3.4 mmol/L (3.5-5.1); Sodium 138 mmol/L (136-145)
[2024-03-23] MEDS: Floranex 1 GM Packet PO SCH (10:21)
[2024-03-23 12:43] LABS: Platelet Adequacy Comment Appears Adequate
[2024-03-23] MEDS ORDERED: Electrolyte Replacement Protocol 1 EACH FS SCH (14:30)
[2024-03-23] MEDS ORDERED: Ipratropium/Albuterol 3 ML NEB NEB SCH (14:30)
[2024-03-23 14:53] LABS: Burr Cells SLIGHT = 2-5 cells HPF (0-1); Hypochromia SLIGHT = 6-15 cells HPF (0-5); Macrocytosis MODERATE=16-30 cells HPF (0-5); Polychromasia SLIGHT = 2-3 cells HPF (0-2); Tear Drops SLIGHT = 2-5 cells HPF (0-1)
[2024-03-23] MEDS ORDERED: Iopamidol-370 76% 500 ML MDV (1 ML CHARGE) ONE (15:53)
[2024-03-23 16:31] LABS: Bacteria/HPF None Seen HPF (None Seen); Bilirubin Negative (Negative); Blood, Urine Negative (Negative); Clarity Clear (Clear); Glucose, Urine (Dipstick) Normal (Negative); Ketone, Urine Negative (Negative); Leukocyte Negative Leu/uL (Negative); Nitrite Negative (Negative); Protein, Urine (Dipstick) 30 mg/dL (Neg-Trace); RBC/HPF 0-3 HPF (0-3); Specific Gravity, Urine 1.033 (1.002-1.036); Squamous Epithelial 0-3 HPF (0-3); WBC/HPF 0-3 HPF (0-3); pH, Urine 5.5 (5.0-9.0)
[2024-03-23 17:08] LABS: Iron 14 ug/dL (65-175); Iron Binding Capacity, Total 304 mcg/dL (261-462)
[2024-03-23] MEDS: Potassium Chloride 20 MEQ TAB PO SCH (17:13)
[2024-03-23] MEDS: Furosemide 20 MG (2 mL) VIAL SLOW IVP SCH (17:13)
[2024-03-23] MEDS: Ipratropium/Albuterol 3 ML NEB NEB SCH (17:39)
[2024-03-23] MEDS ORDERED: Potassium Chloride 20 MEQ TAB PO SCH (20:00)
[2024-03-23] MEDS: Pantoprazole 40 MG VIAL IVP SCH (20:36)
[2024-03-23] MEDS ORDERED: Metoprolol Tartrate 25 MG TAB PO SCH (21:00)
[2024-03-24] MEDS: Ipratropium/Albuterol 3 ML NEB NEB PRN (00:03)
[2024-03-24 07:07] LABS: #Basophils 0.04 10x3/uL (0.0-0.2); %Basophils 0.8 % (0.0-1.0); %Eosinophils 2.6 % (0.0-10.0); %Lymphocytes 25.8 % (21.0-51.0); %Monocytes 9.8 % (0.0-10.0); %Neutrophils 60.4 % (42.0-75.0); Hematocrit 26.2 % (42.0-52.0); Hemoglobin 7.8 g/dL (14.0-18.0); Mean Corpuscular HGB CONC 29.8 g/dL (32.0-36.0); Mean Corpuscular Hemoglobin 25.4 pg (27.0-31.0); Mean Corpuscular Volume 85.3 fL (78.0-98.0); Platelet Count 347 10x3/uL (130-400); RBC Distribution Width 17.8 % (11.5-14.5); Red Blood Cell (RBC) Count 3.07 mill/uL (4.70-6.10)
[2024-03-24 07:25] LABS: Anion Gap 8 mmol/L (10-20); BUN (Urea Nitrogen) 13 mg/dL (8.4-25.7); Calc. Creatinine Clearance 99 mL/min (70-130); Calcium 8.5 mg/dL (7.8-10.44); Carbon Dioxide 23 mmol/L (23-31); Chloride 111 mmol/L (98-107); Estimated GFR 95; Glucose 84 mg/dL (83-110); Potassium 4.2 mmol/L (3.5-5.1); Sodium 138 mmol/L (136-145)
[2024-03-24] MEDS: Saccharomyces boulardii 250 MG CAP PO SCH (08:27)
[2024-03-24] MEDS: Magnesium 2 GM/50 ML(in water) 2 GM in Premix 1 BAG IVPB SCH (08:32)
[2024-03-24 09:27] VITALS: BMI 24.5
[2024-03-24] MEDS ORDERED: Iron Sucrose Complex 200 MG in Sodium Chloride 0.9% 100 ML IVPB SCH (11:30)
[2024-03-24] MEDS: Sodium Ferric Gluconate 250 MG in Sodium Chloride 0.9% 250 ML 250 ML IVPB SCH (12:23)
[2024-03-24] MEDS ORDERED: Furosemide 20 MG TAB PO SCH (12:30)
[2024-03-24] MEDS ORDERED: Potassium Bicarbonate/Cit Ac 20 MEQ TAB PO SCH (12:30)
[2024-03-24] MEDS: Furosemide 20 MG TAB PO SCH (14:33)
[2024-03-24 14:39] LABS: #Basophils Less than 0.03 10x3/uL (0.0-0.2); %Basophils 0.3 % (0.0-1.0); %Eosinophils 1.4 % (0.0-10.0); %Lymphocytes 22.6 % (21.0-51.0); %Monocytes 9.2 % (0.0-10.0); %Neutrophils 66.2 % (42.0-75.0); Hematocrit 28.8 % (42.0-52.0); Hemoglobin 8.5 g/dL (14.0-18.0); Mean Corpuscular HGB CONC 29.5 g/dL (32.0-36.0); Mean Corpuscular Hemoglobin 25.4 pg (27.0-31.0); Mean Platelet Volume 9.8 fL (7.4-10.4); Platelet Count 405 10x3/uL (130-400); Red Blood Cell (RBC) Count 3.35 mill/uL (4.70-6.10)
[2024-03-24] MEDS: Potassium Bicarbonate/Cit Ac 20 MEQ TAB PO SCH (15:56)
[2024-03-24] MEDS: Albumin 25% 25 GM (100 mL) BOT IVPB SCH (20:45)
[2024-03-25] MEDS: Metoprolol Tartrate 25 MG TAB PO SCH (02:15)
[2024-03-25] MEDS: Acidophilus Lactiobac CAPSULE PO SCH (02:15)
[2024-03-25] MEDS: Saccharomyces boulardii 250 MG CAP PO SCH (02:16)
[2024-03-25 07:06] LABS: #Basophils Less than 0.03 10x3/uL (0.0-0.2); %Basophils 0.4 % (0.0-1.0); %Eosinophils 2.5 % (0.0-10.0); %Lymphocytes 21.3 % (21.0-51.0); %Monocytes 10.4 % (0.0-10.0); Hematocrit 25.4 % (42.0-52.0); Hemoglobin 7.6 g/dL (14.0-18.0); Mean Corpuscular HGB CONC 29.9 g/dL (32.0-36.0); Mean Corpuscular Hemoglobin 25.1 pg (27.0-31.0); Mean Corpuscular Volume 83.8 fL (78.0-98.0); Mean Platelet Volume 9.9 fL (7.4-10.4); Platelet Count 362 10x3/uL (130-400); RBC Distribution Width 18.4 % (11.5-14.5); Red Blood Cell (RBC) Count 3.03 mill/uL (4.70-6.10)
[2024-03-25 07:32] LABS: Anion Gap 11 mmol/L (10-20); BUN (Urea Nitrogen) 10 mg/dL (8.4-25.7); Calc. Creatinine Clearance 106 mL/min (70-130); Carbon Dioxide 24 mmol/L (23-31); Chloride 107 mmol/L (98-107); Estimated GFR 97; Glucose 90 mg/dL (83-110); Magnesium 2.1 mg/dL (1.6-2.6); Potassium 3.8 mmol/L (3.5-5.1); Sodium 138 mmol/L (136-145)
[2024-03-25 07:43] LABS: Phosphorus 3.5 mg/dL (2.3-4.7)
[2024-03-26 06:53] LABS: #Basophils 0.04 10x3/uL (0.0-0.2); %Basophils 0.6 % (0.0-1.0); %Eosinophils 3.8 % (0.0-10.0); %Lymphocytes 22.2 % (21.0-51.0); %Monocytes 9.6 % (0.0-10.0); %Neutrophils 63.5 % (42.0-75.0); Hematocrit 26.1 % (42.0-52.0); Hemoglobin 7.7 g/dL (14.0-18.0); Mean Corpuscular HGB CONC 29.5 g/dL (32.0-36.0); Mean Corpuscular Hemoglobin 25.3 pg (27.0-31.0); Mean Corpuscular Volume 85.9 fL (78.0-98.0); Mean Platelet Volume 9.9 fL (7.4-10.4); Platelet Count 374 10x3/uL (130-400); Red Blood Cell (RBC) Count 3.04 mill/uL (4.70-6.10)
[2024-03-26 07:17] LABS: Anion Gap 12 mmol/L (10-20); BUN (Urea Nitrogen) 11 mg/dL (8.4-25.7); Calc. Creatinine Clearance 96 mL/min (70-130); Calcium 9.6 mg/dL (7.8-10.44); Carbon Dioxide 28 mmol/L (23-31); Chloride 105 mmol/L (98-107); Estimated GFR 94; Glucose 92 mg/dL (83-110); Potassium 3.8 mmol/L (3.5-5.1); Sodium 141 mmol/L (136-145)
[2024-03-26] MEDS: Furosemide 20 MG (2 mL) VIAL SLOW IVP SCH ×2 (12:21→14:24)
[2024-03-26] MEDS: Pantoprazole DR 40 MG TAB PO SCH (20:17)
[2024-03-27 06:51] LABS: #Basophils Less than 0.03 10x3/uL (0.0-0.2); %Basophils 0.3 % (0.0-1.0); %Eosinophils 3.1 % (0.0-10.0); %Lymphocytes 20.4 % (21.0-51.0); %Monocytes 9.3 % (0.0-10.0); %Neutrophils 66.4 % (42.0-75.0); Hematocrit 28.5 % (42.0-52.0); Hemoglobin 8.5 g/dL (14.0-18.0); Mean Corpuscular HGB CONC 29.8 g/dL (32.0-36.0); Mean Corpuscular Hemoglobin 25.3 pg (27.0-31.0); Mean Corpuscular Volume 84.8 fL (78.0-98.0); Mean Platelet Volume 9.5 fL (7.4-10.4); Platelet Count 385 10x3/uL (130-400); RBC Distribution Width 20.2 % (11.5-14.5); Red Blood Cell (RBC) Count 3.36 mill/uL (4.70-6.10)
[2024-03-27 07:10] LABS: Phosphorus 3.6 mg/dL (2.3-4.7)
[2024-03-27 07:11] LABS: Anion Gap 12 mmol/L (10-20); BUN (Urea Nitrogen) 13 mg/dL (8.4-25.7); Calc. Creatinine Clearance 93 mL/min (70-130); Calcium 9.5 mg/dL (7.8-10.44); Carbon Dioxide 32 mmol/L (23-31); Chloride 99 mmol/L (98-107); Estimated GFR 93; Glucose 90 mg/dL (83-110); Magnesium 1.8 mg/dL (1.6-2.6); Potassium 3.6 mmol/L (3.5-5.1); Sodium 139 mmol/L (136-145)
[2024-03-27] MEDS: Magnesium 2 GM/50 ML(in water) 2 GM in Premix 1 BAG IVPB SCH (08:05)
[2024-03-27] MEDS: Ipratropium/Albuterol 3 ML NEB NEB SCH (13:28)
[2024-03-28 04:27] LABS: #Basophils Less than 0.03 10x3/uL (0.0-0.2); %Basophils 0.2 % (0.0-1.0); %Eosinophils 2.1 % (0.0-10.0); %Neutrophils 78.3 % (42.0-75.0); Hematocrit 29.3 % (42.0-52.0); Mean Corpuscular HGB CONC 30.7 g/dL (32.0-36.0); Mean Corpuscular Hemoglobin 25.4 pg (27.0-31.0); Mean Corpuscular Volume 82.5 fL (78.0-98.0); Mean Platelet Volume 9.6 fL (7.4-10.4); Platelet Count 389 10x3/uL (130-400); RBC Distribution Width 20.8 % (11.5-14.5); Red Blood Cell (RBC) Count 3.55 mill/uL (4.70-6.10)
[2024-03-28 05:06] LABS: Anion Gap 14 mmol/L (10-20); BUN (Urea Nitrogen) 14 mg/dL (8.4-25.7); Calc. Creatinine Clearance 99 mL/min (70-130); Calcium 9.3 mg/dL (7.8-10.44); Carbon Dioxide 27 mmol/L (23-31); Chloride 100 mmol/L (98-107); Estimated GFR 95; Glucose 109 mg/dL (83-110); Potassium 3.8 mmol/L (3.5-5.1); Sodium 137 mmol/L (136-145)
[2024-03-28] MEDS: Empagliflozin 10 MG TAB PO SCH (08:29)
[2024-03-28] MEDS: Valsartan 80 MG TAB PO SCH (08:30)
[2024-03-28] MEDS: Furosemide 40 MG TAB PO SCH (08:31)
[2024-03-28] MEDS: Carvedilol 3.125 MG TAB PO SCH (08:31)
[2024-03-28] MEDS: Sodium Ferric Gluconate 250 MG in Sodium Chloride 0.9% 250 ML 250 ML IVPB SCH (10:09)
[2024-03-28] MEDS: Amoxicillin/Potassium Clav 875 MG TAB PO SCH (20:40)
[2024-03-29] MEDS: Acetaminophen 325 MG TAB PO PRN (07:43)
[2024-03-29 08:01] VITALS: BP 106/59; TEMP 98.2
== END 2024-03-29 13:16 | disposition hospice, home (50) | DRG 374 ==
LOC: ERS 14:18 → SUATTDRO 14:18 → T4-B 16:42 → 2SE 03-27 18:39
PROVIDERS: ADMIT Internal Medicine; ATTEND Internal Medicine
PROC: 30233N1 Transfusion of Nonautologous Red Blood Cells into Peripheral Vein, Percutaneous Approach (ICD-10-PCS; principal; 2024-03-22)
PROC: 30233J1 Transfusion of Nonautologous Serum Albumin into Peripheral Vein, Percutaneous Approach (ICD-10-PCS; 2024-03-24)
DX: C19 Malignant neoplasm of rectosigmoid junction (principal); I50.23 Acute on chronic systolic (congestive) heart failure; J96.00 Acute respiratory failure, unspecified whether with hypoxia or hypercapnia; T87.43 Infection of amputation stump, right lower extremity; I42.9 Cardiomyopathy, unspecified; D63.0 Anemia in neoplastic disease; E78.5 Hyperlipidemia, unspecified; I11.0 Hypertensive heart disease with heart failure; E83.42 Hypomagnesemia; I34.0 Nonrheumatic mitral (valve) insufficiency; Z66 Do not resuscitate; Z79.899 Other long term (current) drug therapy; Z90.49 Acquired absence of other specified parts of digestive tract; Z87.891 Personal history of nicotine dependence; Z98.41 Cataract extraction status, right eye; Z51.5 Encounter for palliative care; R53.83 Other fatigue
CPT/HCPCS: 36415; 36430; 71045; 71260; 74177; 80048; 80053; 81001; 82728; 83540; 83550; 83735; 83880; 84100; 85025; 85046; 85610; 85730; 86850; 86900; 86901; 93005; 93306; 94640; 97139; 99285; C9113; J1940; J2916; J3475; J7050; J7620; P9016; P9047; Q9967